=== PATIENT | male | born 2000 | race Caucasian/White ===

== ENCOUNTER 2024-06-03 11:46 | Emergency (ER) | payer SELFPAY ==
[2024-06-03 12:06] VITALS: BP 132/77; PULSE 80; RESP 20; TEMP 98.9; BMI 25.8
[2024-06-03] MEDS ORDERED: IBUPROFEN 600 MG TABLET (FP) PO ONE (12:58)
[2024-06-03] MEDS ORDERED: ACETAMINOPHEN 500 MG TABLET (FP) ONE (12:59)
[2024-06-03] MEDS: IBUPROFEN 600 MG TABLET (FP) PO ONE (13:01)
[2024-06-03] MEDS: ACETAMINOPHEN 500 MG TABLET (FP) PO ONE (13:02)
== END 2024-06-03 13:45 | disposition home or self-care (01) ==
LOC: JER 11:46
DX: S40.912A Unspecified superficial injury of left shoulder, initial encounter (principal); W01.0XXA Fall on same level from slipping, tripping and stumbling without subsequent striking against object, initial encounter; Y93.66 Activity, soccer
CPT/HCPCS: 73030-TC-LT-FY; 73030-TC-RT-FY; 99283-25